=== PATIENT | male | born 1995 | race Caucasian/White ===

== ENCOUNTER 2022-07-17 20:38 | Emergency (ER) | payer BC ==
[~2022-07-17] VITALS: Ht 175.3 cm; Wt 84.1 kg
[2022-07-17 20:39] VITALS: BP 133/72
[2022-07-18] MEDS ORDERED: NORCO, ANEXSIA 5/325MG TABLET (HYDROcodone/ACETAMINOPHEN) PO ONE (01:15)
== END 2022-07-18 01:25 | disposition home or self-care (01) ==
LOC: M ED 20:38
DX: S93.401A Sprain of unspecified ligament of right ankle, initial encounter (principal); X50.0XXA Overexertion from strenuous movement or load, initial encounter; Y92.410 Unspecified street and highway as the place of occurrence of the external cause; F17.200 Nicotine dependence, unspecified, uncomplicated